=== PATIENT | male | born 2000 | race Two or more races ===

== ENCOUNTER 2018-08-12 11:07 | Emergency (ER) | payer OTHER ==
[~2018-08-12] VITALS: Ht 177.8 cm; Wt 74.8 kg
[2018-08-12 11:10] VITALS: BP 162/98
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
--- NOTE | 2018-08-12 12:42 | PHYS DOC ---
Past Medical History Past Medical History: No Pertinent History Past Surgical History: No Surgical History Alcohol Use: None Drug Use: None Adult General Chief Complaint Chief Complaint: UPPER EXTREMITY PAIN HPI HPI Patient is a 18 year old male who presents with 8 out of 10 throbbing intermittent left elbow pain that began 2 weeks ago after he fell. Patient denies any loss of consciousness. States pain is worse on touching the area. OTC remedies relieve his pain. Review of Systems Review of Systems Constitutional: Denies fever or chills [] Musculoskeletal: left elbow pain. Integument: Denies rash or skin lesions [] Neurologic: Denies headache, focal weakness or sensory changes [] All other systems were reviewed and found to be within normal limits, except as documented in this note. Allergies Allergies Allergies Coded Allergies Type Severity Reaction Last Updated Verified No Known Drug Allergies 08/12/18 No Physical Exam Physical Exam Constitutional: Well developed, well nourished, no acute distress, non-toxic appearance. [] Skin: Warm, dry, no erythema, no rash. [] Back: No tenderness, no CVA tenderness. [] Extremities: Left elbow with no obvious deformity, bruises noted on the left forearm. Full range of motion to the left elbow and forearm. +2 left radial pulse. Cap refill less than 2 seconds the left fingers. Adequate radial, medial , ulnar sensation to the left hand. Cap refill less than 2 seconds the left fingers. Neurologic: Alert and oriented X 3, normal motor function, normal sensory function, no focal deficits noted. [] Psychologic: Affect normal, judgement normal, mood normal. [] Current Patient Data Vital Signs Vital Signs Date Time Temp Pulse Resp B/P (MAP) Pulse Ox O2 Delivery O2 Flow Rate FiO2 08/12/18 11:10 98.3 89 16 162/98 (119) 99 Room Air 98.3 EKG EKG [] Radiology/Procedures Radiology/Procedures [] Course & Med Decision Making Course & Med Decision Making Pertinent Labs and Imaging studies reviewed. (See chart for details) This is a 18-year-old male patient presented to the ED today with left elbow pain status post falling 2 weeks ago. Left elbow x-rays interpreted by radiologist are negative for any acute findings. Ice elevation encouraged. OTC pain relievers recommended. Dragon Disclaimer Dragon Disclaimer This electronic medical record was generated, in whole or in part, using a voice recognition dictation system. Departure Departure Impression: Primary Impression: Fall Additional Impression: Left elbow contusion Disposition: 01 HOME, SELF-CARE Condition: STABLE Referrals: UNKNOWN PCP NAME (PCP) follow up with your doctor as needed. Patient Instructions: Contusion, [id number] Additional Instructions: You have left elbow contusion. Left elbow x-rays are negative for any acute findings. Ice and elevate the extremity. Take [id number] pain relievers as needed. Problem Qualifiers Primary Impression: Fall Encounter type: initial encounter Qualified Codes: W19.XXXA - Unspecified fall, initial encounter Additional Impression: Left elbow contusion Encounter type: initial encounter Qualified Codes: S50.02XA - Contusion of left elbow, initial encounter TIFFANIE BLACK APRN Aug 12, 2018 12:42
== END 2018-08-12 13:32 | disposition home or self-care (01) ==
LOC: ER 11:07
DX: S50.02XA Contusion of left elbow, initial encounter (principal); W00.0XXA Fall on same level due to ice and snow, initial encounter; Y93.89 Activity, other specified; Y92.89 Other specified places as the place of occurrence of the external cause; Y99.8 Other external cause status
CPT/HCPCS: 73080; 99283